=== PATIENT | female | born 1940 | race Two or more races ===

== ENCOUNTER 2016-11-27 06:26 | Day surgery (SDC) | payer MEDICARE, BC ==
[2016-11-25 11:05] VITALS: BMI 25.0
[~2016-11-27 06:26] MED LIST: HYDROmorphone 1 MG/ML 1 ML SYRINGE IVP PRN; LACTATED RINGERS 1,000 ML IV SCH; MIDAZOLAM 2 MG/2 ML VIAL IV PRN; MOXIFLOXACIN HCL 0.5% DROPS 3 ML BTL OP ONE; ONDANSETRON 4 MG/2 ML VIAL IVP PRN; TETRACAINE 0.5% OPHTH (PF) DROPS 4 ML BTL OP ONE; TIMOLOL 0.5% OPHTH SOLN (PF) 0.2 ML DROPERETTE OP ONE
[2016-11-27] MEDS: CYCLOPENTOLATE 1% OPHTH SOLN 2 ML BTL OP ONE ×3 (06:53→07:10)
[2016-11-27] MEDS: PHENYLEPHRINE 2.5% OPHTH DRP 2ML OP NR ×3 (06:56→07:13)
[2016-11-27 07:02] VITALS: TEMP 98.2
[2016-11-27] MEDS ORDERED: LIDOCAINE 1% 20 ML VIAL (10MG/ML) FOR IV START INTRADERMA ONE (07:09)
[2016-11-27] MEDS ORDERED: BALANCED SALT IRRIG SOLN COMB2 15 ML IRRIG.SOLN INTRAOCULA ONE ×2 (07:33)
[2016-11-27] MEDS ORDERED: DUOVISC KIT (GREEN BOX) INTRAOCULA ONE (07:33)
[2016-11-27] MEDS ORDERED: LIDOCAINE 1% (PF) 10MG/ML VIAL MISCELLANE ONE (07:34)
[2016-11-27] MEDS ORDERED: fentaNYL (PF) 50 MCG/ML 2 ML AMP ONE (07:38)
[2016-11-27] MEDS ORDERED: MIDAZOLAM 2 MG/2 ML VIAL ONE (07:38)
[2016-11-27] MEDS ORDERED: EPINEPHrine (PF) 0.3 ML in BALANCED SALT IRRIG SOLN COMB2 500 ML IRRIGATION ONE (07:52)
--- NOTE | 2016-11-27 08:17 | P.OP ---
Date of Procedure: 11/27/16 Preoperative Diagnosis: NS & POAG moderate and narrow angle Postoperative Diagnosis: same Procedure(s) Performed: PIOL & iStent OD Implants: PCB00 23.50 & GTS10L Anesthesia: MAC Surgeon: Ghulam Haines Estimated Blood Loss (ml): 0 Pathology: none sent Condition: stable Disposition: same day Indications for Procedure: blurring vision and glaucoma
[2016-11-27 08:18] VITALS: RESP 16
[2016-11-27 08:34] VITALS: BP 157/82; PULSE 66
--- NOTE | 2016-11-27 16:53 | OP ---
DATE OF SERVICE: 11/27/2016 SURGEON: GEOVANNY DIAL MD HEAD START TEACHER: PREOPERATIVE DIAGNOSES: 1. Primary open-angle glaucoma, moderate stage. 2. Narrow anterior chamber. 3. 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 4. Nuclear sclerosis. 5. Cortical sclerosis. POSTOPERATIVE DIAGNOSIS: OPERATION: Phacoemulsification of cataract and intraocular lens implant of the right eye with iStent implantation of the right eye. ANESTHESIA: Topical. ESTIMATED BLOOD LOSS: None. SPECIMENS REMOVED: None. COMPLICATIONS: NARRATIVE: After obtaining the appropriate consent, the patient was brought to the operating room. There she was placed under cardiac monitoring, prepped and draped in the usual sterile manner. She was approached from her right temporal side. At the 11 o'clock position, a 1.1 mm stab blade was used to create a paracentesis port. Through this opening 1% Xylocaine MPF 50/50 mix with balanced-salt solution was injected into the anterior chamber. This was followed by stabilization of the anterior chamber with Viscoat. A small amount of Viscoat was also placed on the anterior cornea. A 2.5 mm keratome was used to create a self-sealing corneal flap incision in a Langerman's fashion at the 9 o'clock position. The patient was asked to rotate her head towards the left approximately 45 degrees, and a gonioprism was placed on the eye to identify the trabecular meshwork. It was easily seen without any scar tissue in place. Therefore a Glaukos iStent GTS 100L was placed into the trabecular meshwork without any difficulty. A small amount of blood effluxed from the opening of the tube. She was then returned to the proper supine position. A cystotome was used to start a continuous tear capsulorrhexis, which was then completed using the Utrata forceps. Hydrodissection and hydrodelineation of the lens was accomplished with balanced-salt solution. Phacoemulsification of the lens utilizing phaco chop was accomplished in 22.69 seconds at 8% power. Additional Xylocaine MPF was instilled into the anterior chamber. This was followed by removal of the remaining cortex under irrigation and aspiration followed by polishing of the capsule in capsule vacuum mode. The eye was then stabilized with Provisc and an OMID PCB00 23.5 diopter posterior chamber intraocular lens was then inserted into the capsular bag without difficulty. Irrigation aspiration was used to remove the remaining viscoelastic from in and around the intraocular lens as well as the anterior chamber. The eye was brought to normal intraocular pressure through the paracentesis port with the balanced-salt solution. The incisions were checked for watertight integrity. She then received 2 drops of 0.5% Timolol followed by 2 drops of Vigamox, was lightly patched and shielded in the usual manner. There were no complications from the procedure. She tolerated the procedure well and was returned to [facility]patient [facility] in good condition.
== END 2016-11-27 08:56 | disposition home or self-care (01) ==
LOC: OR 06:26
PROVIDERS: ATTEND Ophthalmology
DX: H25.11 Age-related nuclear cataract, right eye (principal); H40.1112 Primary open-angle glaucoma, right eye, moderate stage; H34.8310 Tributary (branch) retinal vein occlusion, right eye, with macular edema; H40.52X2 Glaucoma secondary to other eye disorders, left eye, moderate stage; H52.4 Presbyopia; H52.03 Hypermetropia, bilateral; H52.223 Regular astigmatism, bilateral; E78.5 Hyperlipidemia, unspecified; G62.9 Polyneuropathy, unspecified; J44.9 Chronic obstructive pulmonary disease, unspecified; Z87.891 Personal history of nicotine dependence; Z79.899 Other long term (current) drug therapy; Z85.3 Personal history of malignant neoplasm of breast; I10 Essential (primary) hypertension; I70.90 Unspecified atherosclerosis; Z96.1 Presence of intraocular lens
CPT/HCPCS: 66984; C1780; C1783; J2250; J0171; J3010; J2001

== ENCOUNTER → 2016-12-27 | Outpatient (CLI) | payer MEDICARE, BC ==
[2016-12-27 21:05] LABS: Basophils # (A) 0.1 k/uL (0-0.2); Basophils % (A) 1 %; CH 32.3; CHCM 33.4; Eosinophils # (A) 0.2 k/uL (0-0.7); Eosinophils % (A) 3 %; HCT 47.8 % (34.0-46.0); HDW 2.44; HGB 15.5 gm/dL (11.4-16.0); Luc # (Auto) 0.14; Luc % (Auto) 2; Lymphocytes # (A) 1.8 k/uL (1.0-4.8); Lymphocytes % (A) 28 %; MCH 31.5 pg (25.0-35.0); MCHC 32.4 g/dL (31.0-37.0); MCV 97.3 fL (80.0-100.0); Monocytes # (A) 0.6 k/uL (0-1.0); Monocytes % (A) 9 %; Neutrophils # (A) 3.8 k/uL (1.3-7.7); Neutrophils % (A) 58 %; RBC 4.91 m/uL (3.80-5.40); RDW 13.2 % (11.5-15.5); WBC 6.6 k/uL (3.8-10.6); WBC (Perox) 6.39
[2016-12-27 21:18] LABS: ALT 20 U/L (9-52); AST 21 U/L (14-36); Alkaline Phosphatase 110 U/L (38-126); Anion Gap 8 mmol/L; Blood Urea Nitrogen 12 mg/dL (7-17); Calcium 9.5 mg/dL (8.4-10.2); Carbon Dioxide 27 mmol/L (22-30); Chloride 106 mmol/L (98-107); Cholesterol 202 mg/dL (<200); Glucose 114 mg/dL (74-99); HDL Cholesterol 70 mg/dL (40-60); Non-African American GFR(MDRD) >60 (>60 ml/min/1.73 sqM); Potassium 4.2 mmol/L (3.5-5.1); Sodium 141 mmol/L (137-145); Total Bilirubin 0.6 mg/dL (0.2-1.3); Total Protein 7.2 g/dL (6.3-8.2); Triglycerides 114 mg/dL (<150)
== END ==
LOC: MMGSC 10:10
PROVIDERS: ATTEND Family Medicine
DX: E78.5 Hyperlipidemia, unspecified (principal); M81.0 Age-related osteoporosis without current pathological fracture; R68.83 Chills (without fever)
CPT/HCPCS: 36415; 80053; 80061; 82306; 84439; 84443; 85025; 99213

== ENCOUNTER → 2017-03-27 | Outpatient (CLI) | payer MEDICARE, BC ==
--- NOTE | 2017-03-31 08:58 | MM ---
Reason for exam: screening (asymptomatic). Last mammogram was performed 1 year ago. History: Patient is postmenopausal and has history of breast cancer at age 61. Lumpectomy of the right breast, 2000. Radiation therapy of the right breast, 2000. Excisional biopsy of the right breast. Physical Findings: A clinical breast exam by your physician is recommended on an annual basis and results should be correlated with mammographic findings. MG 3D Screening Mammo W/Cad Bilateral CC and MLO view(s) were taken. Prior study comparison: March 21, 2016, bilateral MG 3d diag mammo w/cad M[facility]. There are scattered fibroglandular densities. Finding: There are typically benign round calcifications in the right breast. There is a chronic nodularity in the left breast. There is no dominant lesion. ASSESSMENT: Benign, BI-RAD 2 RECOMMENDATION: Routine screening mammogram of both breasts in 1 year.
== END | disposition home or self-care (01) ==
LOC: RADMAMWWP 10:50
PROVIDERS: ATTEND Family Medicine
DX: Z12.31 Encounter for screening mammogram for malignant neoplasm of breast (principal)
CPT/HCPCS: 77063; G0202

== ENCOUNTER → 2017-10-08 | Outpatient (CLI) | payer MEDICARE, BC ==
[2017-10-08 18:24] LABS: ALT 18 U/L (9-52); AST 21 U/L (14-36); Albumin 4.1 g/dL (3.5-5.0); Alkaline Phosphatase 121 U/L (38-126); Anion Gap 10 mmol/L; Blood Urea Nitrogen 13 mg/dL (7-17); Calcium 9.9 mg/dL (8.4-10.2); Carbon Dioxide 29 mmol/L (22-30); Chloride 104 mmol/L (98-107); Cholesterol 197 mg/dL (<200); Glucose 92 mg/dL (74-99); HDL Cholesterol 67 mg/dL (40-60); LDL Cholesterol,Calculated 107 mg/dL (0-99); Potassium 4.4 mmol/L (3.5-5.1); Sodium 143 mmol/L (137-145); Total Bilirubin 0.6 mg/dL (0.2-1.3); Total Protein 6.9 g/dL (6.3-8.2); Triglycerides 114 mg/dL (<150)
== END | disposition home or self-care (01) ==
LOC: MMGSC 11:03
PROVIDERS: ATTEND Family Medicine
DX: E78.5 Hyperlipidemia, unspecified (principal)
CPT/HCPCS: 36415; 80053; 80061

== ENCOUNTER 2018-04-29 10:02 | Day surgery (SDC) | payer MEDICARE, BC ==
[2018-04-27 10:12] VITALS: BMI 23.6
[~2018-04-29 10:02] MED LIST changes: -HYDROmorphone 1 MG/ML 1 ML SYRINGE IVP PRN; -MIDAZOLAM 2 MG/2 ML VIAL IV PRN; -MOXIFLOXACIN HCL 0.5% DROPS 3 ML BTL OP ONE; -ONDANSETRON 4 MG/2 ML VIAL IVP PRN; -TETRACAINE 0.5% OPHTH (PF) DROPS 4 ML BTL OP ONE; -TIMOLOL 0.5% OPHTH SOLN (PF) 0.2 ML DROPERETTE OP ONE
[2018-04-29 10:54] VITALS: RESP 16; TEMP 98.8
[2018-04-29] MEDS ORDERED: LIDOCAINE 1% 20 ML VIAL (10MG/ML) FOR IV START INTRADERMA ONE (11:01)
[2018-04-29] MEDS ORDERED: LACTATED RINGERS 1,000 ML IV ONE (11:01)
[2018-04-29] MEDS ORDERED: PROPOFOL 10 MG/ML 20 ML VIAL IV ONE (11:07)
--- NOTE | 2018-04-29 11:33 | P.GSHP ---
History of Present Illness H&P Date: 04/29/18 Chief Complaint: Colon cancer screening Patient here today for colonoscopy. Last colonoscopy over 10 years ago. Per the history the patient has a history of polyps. No family history of colon cancer. No bowel complaints. Past Medical History Past Medical History: Asthma, Cancer, COPD, Eye Disorder, Hyperlipidemia, Osteoarthritis (OA) Additional Past Medical History / Comment(s): HX BREAST CA 2007; Mac. Degeneration History of Any Multi-Drug Resistant Organisms: None Reported Past Surgical History: Breast Surgery Additional Past Surgical History / Comment(s): RT BREAST LUMPECTOMY, LYMPH NODE EXC. RT AXILLA SURG/ FATTY TUMOR, CATARACTS. 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 Smoking Status: Former smoker - Past Family History Brother(s) Family Medical History: Cancer Sister(s) Family Medical History: Cancer Medications and Allergies Home Medications Medication Instructions Recorded Confirmed Type Albuterol Inhaler [Ventolin Hfa 1 - 2 puff INHALATION Q6HR PRN 11/25/16 History Inhaler] Aspirin [Adult Low Dose Aspirin EC] 81 mg PO DAILY 11/25/16 04/27/18 History Cholecalciferol [Vitamin D3] 2,000 unit PO DAILY 11/25/16 04/29/18 History Gabapentin [Neurontin] 300 mg PO TID 11/25/16 04/27/18 History Ibuprofen [Motrin] 400 mg PO Q6HR PRN 11/25/16 04/29/18 History Ipratropium Nebulized [Atrovent 0.5 mg INHALATION TID 11/25/16 04/29/18 History Nebulized] Lovastatin [Mevacor] 20 mg PO HS 11/25/16 04/29/18 History Brimonidine Tartrate [Alphagan P 1 drops LEFT EYE Q8H 04/27/18 04/29/18 History 0.1% Ophth Soln] Montelukast [Singulair] 10 mg PO DAILY 04/27/18 04/29/18 History Allergies Allergy/AdvReac Type Severity Reaction Status Date / Time No Known Allergies Allergy Verified 04/27/18 10:05 Surgical - Exam Vital Signs Temp Pulse Resp BP Pulse Ox 98.8 F 85 16 178/75 95 09/12/18 10:53 04/29/18 10:53 04/29/18 10:53 04/29/18 10:53 04/29/18 10:53 Physical exam: General: Well-developed, well-nourished HEENT: Normocephalic, sclerae nonicteric Abdomen: Nontender, nondistended Extremities: No edema Neuro: Alert and oriented Assessment and Plan (1) Colon cancer screening Narrative/Plan: Will proceed with colonoscopy at this time Current Visit: Yes Status: Acute Code(s): Z12.11 - ENCOUNTER FOR SCREENING FOR MALIGNANT NEOPLASM OF COLON SNOMED Code(s): 571484291
--- NOTE | 2018-04-29 11:49 | P.PCN ---
Date of Procedure: 04/29/18 Procedure(s) Performed: PREOPERATIVE DIAGNOSIS: Colon cancer screening, history of polyps POSTOPERATIVE DIAGNOSIS: Extensive diverticulosis PROCEDURE: Colonoscopy ANESTHESIA: MAC SURGEON: Brandin Ibanez M.D. SPECIMENS: None ENDOSCOPIC PROCEDURE: The patient was placed on the endoscopy table in the left decubitus position. The Olympus colonoscope was inserted into the anus and passed under direct visualization to the base of the cecum. The appendiceal orifice was visualized. From that point the scope was slowly withdrawn inspecting all surfaces carefully. There were no neoplastic inflammatory or polypoid lesions throughout the cecum, ascending, transverse, descending, sigmoid and rectum. There was extensive diverticulosis noted throughout the colon. Digital rectal examination was normal. The patient was taken to the recovery room in stable condition per anesthesia guidelines. RECOMMENDATIONS: Increase fiber. Follow-up colonoscopy to be considered in 10 years
[2018-04-29 12:12] VITALS: BP 161/75; PULSE 71
== END 2018-04-29 12:56 | disposition home or self-care (01) ==
LOC: ORWHC2ENDO 10:02
PROVIDERS: ATTEND Surgery
DX: Z12.11 Encounter for screening for malignant neoplasm of colon (principal); Z86.010 Personal history of colon polyps; K57.90 Diverticulosis of intestine, part unspecified, without perforation or abscess without bleeding; J45.909 Unspecified asthma, uncomplicated; J44.9 Chronic obstructive pulmonary disease, unspecified; E78.5 Hyperlipidemia, unspecified; M19.90 Unspecified osteoarthritis, unspecified site; Z85.3 Personal history of malignant neoplasm of breast; Z87.891 Personal history of nicotine dependence; Z79.82 Long term (current) use of aspirin; Z79.899 Other long term (current) drug therapy
CPT/HCPCS: J2704; G0105; 45378

== ENCOUNTER → 2018-08-17 | Outpatient (CLI) | payer MEDICARE, BC ==
--- NOTE | 2018-08-20 11:46 | MM ---
Reason for exam: screening (asymptomatic). Last mammogram was performed 1 year and 5 months ago. History: Patient is postmenopausal and has history of breast cancer at age 61. Family history of breast cancer in maternal grandmother. Lumpectomy of the right breast, 2000. Radiation therapy of the right breast, 2000. Excisional biopsy of the right breast. Physical Findings: A clinical breast exam by your physician is recommended on an annual basis and results should be correlated with mammographic findings. MG 3D Screening Mammo W/Cad Bilateral CC and MLO view(s) were taken. Prior study comparison: March 27, 2017, bilateral MG 3d screening mammo w/cad. March 21, 2016, bilateral MG 3d diag mammo w/cad MARCIA. There are scattered fibroglandular densities. There is chronic nodularity in the left breast. However, two masses subareolar left breast show gradual enlargement. ASSESSMENT: Incomplete: need additional imaging evaluation, BI-RAD 0 RECOMMENDATION: Ultrasound of the left breast. [facility] will attempt to contact patient to return for ultrasound.
== END ==
LOC: RADMAMWWP 10:10
PROVIDERS: ATTEND Family Medicine
DX: Z12.31 Encounter for screening mammogram for malignant neoplasm of breast (principal)
CPT/HCPCS: 77063; 77067

== ENCOUNTER → 2018-08-25 | Outpatient (CLI) | payer MEDICARE, BC ==
--- NOTE | 2018-08-27 15:42 | USB ---
Reason for exam: additional evaluation requested from abnormal screening. History: Patient is postmenopausal and has history of breast cancer at age 61. Family history of breast cancer in maternal grandmother. Lumpectomy of the right breast, 2000. Radiation therapy of the right breast, 2000. Excisional biopsy of the right breast. Indicated problem(s): palpable abnormality and lump or thickening in the left breast. Physical Findings: Nurse Summary: 12 o'clock cluster-1 cm 8 o'clock .5 cm palpable areas. US Breast Workup Limited LT Left limited breast ultrasound including focal area of concern, retroareolar and axilla demonstrates a 0.8 x 1.0 cm oval lobulated cystic lesion at 12 o'clock, a 0.9 x 0.8 cm oval lobulated cystic lesion at 12 o'clock. These correspond will to the mammographic findings. These results were verbally communicated with the patient and result sheet given to the patient on 08/25/18. ASSESSMENT: Benign, BI-RAD 2 RECOMMENDATION: Routine screening mammogram of both breasts in 1 year.
== END | disposition home or self-care (01) ==
LOC: RADUSWWP 08:54
PROVIDERS: ATTEND Family Medicine
DX: R92.8 Other abnormal and inconclusive findings on diagnostic imaging of breast (principal)

== ENCOUNTER 2023-02-05 12:56 | Day surgery (SDC) | payer MEDICARE, BC ==
--- NOTE | 2023-02-05 14:04 | US ---
ULTRASOUND GUIDED FNA LEFT \PAROTID BIOPSY: CLINICAL HISTORY: Left neck/parotid mass FINDINGS: The procedure was explained to the patient. The risks, complications, benefits and alternatives were discussed and any questions were answered. Informed consent was obtained. Patient was placed supin e on the ultrasound table and prepped and draped in the usual sterile fashion. Utilizing a 25 gauge needle, five passes were made into the requested left neck\parotid mass. Patient was stable throughout the procedure. Pathology is pending. All elements of maximal barrier technique were utilized. IMPRESSION: 1. Successful ultrasound guided FNA left neck mass biopsy.
[2023-02-05 14:43] VITALS: RESP 18; TEMP 97.8
[2023-02-05 14:44] VITALS: BP 100/52; PULSE 70
== END 2023-02-05 14:15 | disposition home or self-care (01) ==
LOC: RADPROMAIN 12:56
PROVIDERS: ATTEND Otolaryngology
DX: R22.1 Localized swelling, mass and lump, neck (principal)
CPT/HCPCS: 10005; 88173; 88305